=== PATIENT | female | born 1975 | race Caucasian/White ===

== ENCOUNTER 2020-05-06 12:55 | Emergency (ER) | payer OTHER ==
[~2020-05-06 12:55] MED LIST: ABILIFY10 MG PO; BACTROBAN NASAL1 GM TOP; IBUPROFEN800 MG PO; KETOROLAC TROME10 MG PO; KLONOPIN0.5 MG PO; LAMICTAL100 MG PO; PHENERGAN25 M1 PO; SULFAMETHOXAZO1 EACH PO; TRAMADOL HCL50 MG PO; ZOFRAN4 MG PO
[2020-05-06] MEDS ORDERED: NORCO 5-325 TA1 EACH PO ×2 (14:28→15:14)
== END 2020-05-06 16:10 | disposition home or self-care (01) ==
LOC: FER 12:55
DX: S06.0X0A Concussion without loss of consciousness, initial encounter (principal); S80.02XA Contusion of left knee, initial encounter; S00.03XA Contusion of scalp, initial encounter; M54.2 Cervicalgia; G35 Multiple sclerosis; E66.9 Obesity, unspecified; Z88.0 Allergy status to penicillin; W18.09XA Striking against other object with subsequent fall, initial encounter; Y92.009 Unspecified place in unspecified non-institutional (private) residence as the place of occurrence of the external cause; Z87.891 Personal history of nicotine dependence
CPT/HCPCS: 70450; 72125; 73560; 93005; J1170

== ENCOUNTER 2020-06-15 02:44 | Emergency (ER) | payer OTHER ==
[~2020-06-15 02:44] MED LIST changes: +NORCO 5-325 TA1 EACH PO
[2020-06-15 03:32] LABS: BASOPHIL 0.6 % (0-2); EOSINOPHIL 2.9 % (0-5); HCT 33.6 % (37.0-47.0); HGB 10.9 g/dl (12.5-16.0); MCH 27.3 pg (25.0-31.0); MCHC 32.4 g/dL (32.0-36.0); MONOCYTE 8.7 % (0-12); MPV 10.9 fL (6.0-9.5); NEUTROPHIL 67.6 % (41-80); NRBC 0; PLT 328 K/uL (150-400); RDW 17.6 % (11.5-14.0); WBC 5.2 K/uL (4.0-10.5)
[2020-06-15 04:09] LABS: ACETAMINOPHEN (TYLENOL) < 2.0 ug/mL (10.0-30.0); ALBUMIN 3.7 g/dL (3.4-5.0); ALKALINE PHOSHATASE 118 U/L (46-116); ALT 22 U/L (14-59); AST 24 U/L (15-37); BILIRUBIN - TOTAL 0.1 mg/dL (0.2-1.0); BUN 17 mg/dL (7-18); BUN/CREAT RATIO (CALC) 22.4 RATIO; CHLORIDE 103 mmol/L (98-107); CO2 (BICARBONATE) 25 mmol/L (21-32); CREATININE 0.76 mg/dL (0.51-0.95); GLOBULIN (CALCULATION) 3.3 g/dL; GLUCOSE 98 mg/dL (74-106); POTASSIUM 4.3 mmol/L (3.5-5.1)
[2020-06-15 04:50] LABS: BILIRUBIN NEGATIVE (NEGATIVE); BLOOD NEGATIVE Ery/uL (NEGATIVE); CLARITY CLEAR (CLEAR); COLOR YELLOW (YELLOW); GLUCOSE (U) NORMAL (NORMAL); LEUKOCYTES NEGATIVE Leu/uL (NEGATIVE); NITRITE NEGATIVE (NEGATIVE); PROTEIN NEGATIVE (NEGATIVE); SPECIFIC GRAVITY 1.025 (1.001-1.030); UROBILINOGEN 0.2 mg/dL (0.2-1.0)
[2020-06-15 04:52] LABS: BARBITURATES NEGATIVE (NEGATIVE); ECSTASY (MDMA) NEGATIVE (NEGATIVE); MARIJUANA (THC) NEGATIVE (NEGATIVE); METHADONE NEGATIVE (NEGATIVE); OPIATES NEGATIVE (NEGATIVE)
[2020-06-15 04:53] LABS: AMPHETAMINES NEGATIVE (NEGATIVE); OXYCODONE NEGATIVE (NEGATIVE)
== END 2020-06-15 13:47 ==
LOC: FER 02:44
PROVIDERS: Emergency Medicine
DX: F23 Brief psychotic disorder (principal); Z88.0 Allergy status to penicillin; Z20.822 Contact with and (suspected) exposure to COVID-19
CPT/HCPCS: 36415; 70450; 71045; 80053; 80305; 81003; 84484; 85025; 93005; G0480; U0002

== ENCOUNTER 2020-07-10 08:09 | Emergency (ER) | payer OTHER ==
[2020-07-10] MEDS ORDERED: CYCLOBENZAPRINE10 MG PO (10:42)
== END 2020-07-10 10:47 | disposition home or self-care (01) ==
LOC: FER 08:09
DX: T14.8XXA Other injury of unspecified body region, initial encounter (principal); M54.2 Cervicalgia; M54.5 Low back pain; Z91.040 Latex allergy status; V43.62XA Car passenger injured in collision with other type car in traffic accident, initial encounter; Y92.410 Unspecified street and highway as the place of occurrence of the external cause
CPT/HCPCS: 72050; 72110

== ENCOUNTER 2020-07-12 10:06 | Emergency (ER) | payer OTHER ==
[~2020-07-12 10:06] MED LIST changes: +CYCLOBENZAPRINE10 MG PO
[2020-07-12 11:52] LABS: BASOPHIL 0.8 % (0-2); EOSINOPHIL 2.7 % (0-5); HGB 11.1 g/dl (12.5-16.0); LYMPHOCYTE 19.5 % (15-48); MCH 27.1 pg (25.0-31.0); MCHC 31.7 g/dL (32.0-36.0); MCV 85.6 fL (78.0-100.0); MONOCYTE 7.1 % (0-12); MPV 11.3 fL (6.0-9.5); NEUTROPHIL 69.7 % (41-80); NRBC 0; PLT 303 K/uL (150-400); RBC 4.09 M/uL (4.20-5.40); RDW 16.7 % (11.5-14.0); WBC 4.8 K/uL (4.0-10.5)
[2020-07-12 12:03] LABS: BILIRUBIN NEGATIVE (NEGATIVE); BLOOD NEGATIVE Ery/uL (NEGATIVE); CLARITY CLEAR (CLEAR); COLOR YELLOW (YELLOW); GLUCOSE (U) NORMAL (NORMAL); LEUKOCYTES NEGATIVE Leu/uL (NEGATIVE); NITRITE NEGATIVE (NEGATIVE); PROTEIN NEGATIVE (NEGATIVE); SPECIFIC GRAVITY 1.025 (1.001-1.030)
[2020-07-12 12:17] LABS: ALBUMIN 3.5 g/dL (3.4-5.0); BILIRUBIN - TOTAL 0.3 mg/dL (0.2-1.0); BUN/CREAT RATIO (CALC) 20.9 RATIO; CREATININE 0.67 mg/dL (0.51-0.95); GLOBULIN (CALCULATION) 3.3 g/dL; POTASSIUM 4.7 mmol/L (3.5-5.1); TOTAL PROTEIN 6.8 g/dL (6.4-8.2)
[2020-07-12] MEDS ORDERED: DICLOFENAC SODI75 MG PO (14:05)
[2020-07-13 22:06] LABS: CHLAMYDIA TRACHOMATIS, NAA Negative (Negative); NEISSERIA GONORRHOEAE, NAA Negative (Negative)
== END 2020-07-12 14:15 | disposition home or self-care (01) ==
LOC: FER 10:06
PROVIDERS: Emergency Medicine
DX: R10.2 Pelvic and perineal pain (principal); N89.8 Other specified noninflammatory disorders of vagina; F17.290 Nicotine dependence, other tobacco product, uncomplicated; Z98.84 Bariatric surgery status
CPT/HCPCS: 36415; 76830; 80053; 81003; 85025; 87210; 87491; 87591; J1885